=== PATIENT | male | born 2000 | race Caucasian/White ===

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

== ENCOUNTER 2022-08-17 18:52 | Emergency (ER) | payer MEDICAID, SELFPAY ==
--- NOTE | 2022-08-17 20:02 | ED.GENADULT ---
HPI - General Adult General Chief complaint: Fever Stated complaint: Fever/Cough x2 weeks Time Seen by Provider: 08/17/22 21:54 Source: patient Mode of arrival: ambulatory Limitations: no limitations Related Data Allergies Allergy/AdvReac Type Severity Reaction Status Date / Time No Known Allergies Allergy Verified 05/04/21 22:47 [facility] Past Medical History Medical History No known health problems Social History Social History Advance Directives: No Advance Directives Information Provided: No Physical Exam ED Vital Signs: Vital Signs - 24 hr 08/17/22 20:08 Temperature 100.8 F H Pulse Rate 94 Respiratory Rate 20 Blood Pressure 130/75 Pulse Oximetry 97 Oxygen Delivery Method Room Air BMI result Body Mass Index 30.2 Course Course Course Narrative: RME performed by Shahnaz Carlson PA-C. Patient is a 22 year old male presenting to the emergency department feeling unwell with body aches and a fever. COVID-19/influenza/RSV swab ordered. Patient placed back in the waiting room pending results and bed availability. Patient was seen and discharged by TONE Sargent who created and completed a separate note. Medications Administered Discontinued Medications Generic Name Dose Route Start Last Admin Trade Name Freq PRN Reason Stop Dose Admin Ibuprofen 600 mg 08/17/22 21:54 08/17/22 22:39 Ibuprofen 600 Mg Tablet PO 08/17/22 21:55 600 mg ONCE ONE Administration Medical Decision Making Lab Data Labs: Lab Results 08/17/22 Range/Units 20:07 Influenza Type A (PCR) POSITIVE A (Negative) Influenza Type B (PCR) NEGATIVE (Negative) RSV RNA Qual (PCR) NEGATIVE (Negative) SARS-CoV-2 RNA (RT-PCR) NEGATIVE (Negative) Discharge Plan Discharge Clinical Impression: Influenza Patient Disposition: Home, Self-Care Instructions: Influenza (ED) Additional Instructions: You were evaluated for fever, body aches, cough and headache. You tested positive for influenza A. Take Motrin 600 mg every 6 hours as needed and Tylenol 650 mg every 6 hours as needed for pain and fever management. Your last dose of Motrin was given at 22:00. Your next dose is due at 04:00. Consider taking Tylenol at 01:00 so you can kind of pain and fever management every 3 hours. Motrin is the same medication as Advil and ibuprofen. This medication can be purchased [id number], and is usually sold in 200 mg tablets. Please write down what time you take these medications to prevent accidental overdose. Drink plenty of fluids. Thank you for choosing this emergency department for evaluation. Please follow-up with primary care physician as needed. Return to the emergency department for any new, concerning, or worsening symptoms. Stand Alone Forms: Work/School Release Interventions: ED Discharge Assessment Last Done: 08/17/22 22:55 Discharge Date/Time: 08/17/22 22:55
[2022-08-17 20:08] VITALS: BP 130/75; PULSE 94; RESP 20; TEMP 38.2; O2SAT 97; BMI 30.2
[2022-08-17 20:53] LABS: Influenza A PCR POSITIVE (Negative); Influenza B PCR NEGATIVE (Negative); Resp Syncy Virus RNA Qual PCR NEGATIVE (Negative); SARS COV2 PCR INHOUSE NEGATIVE (Negative)
--- NOTE | 2022-08-17 21:54 | ED_ITS ---
HPI - Fever General Chief Complaint: Fever Stated Complaint: Fever/Cough x2 weeks Time Seen by Provider: 08/17/22 21:54 Source: patient Mode of arrival: ambulatory Limitations: no limitations History of Present Illness HPI Narrative: 22-year-old male presents with 2 days of fevers, body aches, bone aching, cough headache and dizziness. States that he was traveling from [place] on a bus and has had multiple sick contacts. Patient did not take any medications prior to his arrival. He does not report any chest pain or pressure, palpitations, weakness, nausea, vomiting, diarrhea, or changes in vision MD elicited complaint: fever and malaise Onset (ago): day(s) (2) Context: sick contacts and recent travel Exacerbating factors: exertion Relieving factors: nothing Associated symptoms: chills, myalgias, headache, nasal congestion and cough Treatments prior to arrival fever: none Related Data Allergies Allergy/AdvReac Type Severity Reaction Status Date / Time No Known Allergies Allergy Verified 05/04/21 22:47 Review of Systems Review of Systems: Constitutional: positive Fever, positive Chills, positive fatigue, positive Malaise ENT/Mouth: positive sore throat, positive runny nose Eyes: No Discharge Cardiovascular: No Chest Pain, No SOB Respiratory: No Cough, No Sputum, No Wheezing, No Smoke Exposure, No Dyspnea Gastrointestinal: No Nausea, No Vomiting, No Diarrhea Genitourinary: no irregular bleeding, No Dysuria, No Urinary Frequency, No Hematuria, No Urinary Incontinence, No Urgency, No Flank Pain, Musculoskeletal: positive Myalgia Skin: No rash Neuro: No Headache Yes all other systems are reviewed and are negative PMFSH Past Medical History Attestation statement: The following information was validated with the patient. Source: old records reviewed Medical History No known health problems Social History Social History Advance Directives: No Advance Directives Information Provided: No Physical Exam Vital Signs: Vital Signs: Last Vital Signs Temp 100.8 F H 08/17/22 20:08 Pulse 94 08/17/22 20:08 Resp 20 08/17/22 20:08 BP 130/75 08/17/22 20:08 Pulse Ox 97 08/17/22 20:08 O2 Del Method 08/17/22 20:08 BMI result Body Mass Index 30.2 Appearance: Alert. Oriented X3. Mild distress. Eyes: Pupils equal, round and reactive to light. ENT: Pharynx normal. Neck: Normal inspection. Neck supple. CVS: Normal heart rate and rhythm. Pulses normal. Respiratory: No respiratory distress. Breath sounds normal. Abdomen: Soft and nontender. Skin: Skin warm and dry. Normal skin color. Normal skin turgor. Extremities: No lower extremity edema. Date well-balanced well coordinated. Neuro: No motor deficit. No sensory deficit. Cranial nerves 2-12 intact. Course Course Course Narrative: 22-year-old male presents with fever, body aches, cough, headaches and dizziness for the past 2 days. Traveled from [facility] on a bus and has had [facility] sick contacts. He presents with his father who has similar symptoms. Tested positive for influenza A while in the emergency department waiting room. Patient was febrile a 100.8, given Motrin by this [employer]STRU[employer]. Patient appears nontoxic, has vital signs that are hemodynamically stable. 22:04 patient was discharged to home with supportive measures. Verbalized understanding of and agrees to plan of care discharge home Medications Administered Discontinued Medications Generic Name Dose Route Start Last Admin Trade Name Freq PRN Reason Stop Dose Admin Ibuprofen 600 mg 08/17/22 21:54 08/17/22 22:39 Ibuprofen 600 Mg Tablet PO 08/17/22 21:55 600 mg ONCE ONE Administration MDM - Fever Differential Diagnosis Differential diagnosis: Likely viral infection and influenza Medical Records Attestation: I reviewed the patient's medical records. Lab Data Attestation: I reviewed the patient's lab results. Labs: Lab Results 08/17/22 Range/Units 20:07 Influenza Type A (PCR) POSITIVE A (Negative) Influenza Type B (PCR) NEGATIVE (Negative) RSV RNA Qual (PCR) NEGATIVE (Negative) SARS-CoV-2 RNA (RT-PCR) NEGATIVE (Negative) Discharge Plan Discharge Clinical Impression: Influenza Patient Disposition: Home, Self-Care Instructions: Influenza (ED) Additional Instructions: You were evaluated for fever, body aches, cough and headache. You tested positive for influenza A. Take Motrin 600 mg every 6 hours as needed and Tylenol 650 mg every 6 hours as needed for pain and fever management. Your last dose of Motrin was given at 22:00. Your next dose is due at 04:00. Consider taking Tylenol at 01:00 so you can kind of pain and fever management every 3 hours. Motrin is the same medication as Advil and ibuprofen. This medication can be purchased [id number], and is usually sold in 200 mg tablets. Please write down what time you take these medications to prevent accidental overdose. Drink plenty of fluids. Thank you for choosing this emergency department for evaluation. Please follow-up with primary care physician as needed. Return to the emergency department for any new, concerning, or worsening symptoms. Stand Alone Forms: Work/School Release Interventions: ED Discharge Assessment Last Done: 08/17/22 22:55 Discharge Date/Time: 08/17/22 22:55
[2022-08-17] MEDS: Ibuprofen 600 MG TABLET PO (22:39)
--- NOTE | 2022-08-17 22:53 | PC.NURSE ---
Discharge instructions given and explained. Patient ambulates safely and independently. No apparent distress. All of patient's questions answered.
== END 2022-08-17 22:55 | disposition home or self-care (01) ==
PROVIDERS: Physician Assistant Medical; Emergency Provider Internal Medicine; PCP Family Medicine
DX: J10.1 Influenza due to other identified influenza virus with other respiratory manifestations (principal); R50.9 Fever, unspecified; R05.9 Cough, unspecified; M79.10 Myalgia, unspecified site; Z20.822 Contact with and (suspected) exposure to COVID-19
CPT/HCPCS: 0241U; 99283